=== PATIENT | male | born 1965 | race Caucasian/White ===

== ENCOUNTER 2019-08-12 14:31 | Outpatient (CLI) | payer BC, SELFPAY ==
--- NOTE | ~2019-08-12 | XR_ITS ---
EXAMINATION: XR lumbar spine 2-3V EXAM DATE: 08/12/2019 14:53 INDICATION: Bilateral hip pain. TECHNIQUE: Lumber spine frontal, lateral, lateral L5-S1 projections for interpretation. There is no prior study for comparison. FINDINGS: The vertebral bodies are aligned in the AP dimension. Vertebral body and disc heights are well-maintained. Mild lumbar facet arthropathy. Sacrum, sacroiliac joints, sacral arcuate lines are intact. Paraspinal soft tissue is unremarkable. IMPRESSION: Mild lumbar facet arthropathy. Otherwise unremarkable exam. Reviewed, dictated and finalized at location A.
== END 2019-08-12 14:32 | disposition home or self-care (01) ==
PROVIDERS: PCP Family Medicine; Visit Provider Physician Assistant
DX: M54.5 Low back pain (principal); M25.552 Pain in left hip; M25.551 Pain in right hip
CPT/HCPCS: 72100

== ENCOUNTER → 2021-03-28 11:46 | Outpatient (CLI) | payer OTHER, SELFPAY ==
--- NOTE | ~2021-03-28 | XR_ITS ---
EXAMINATION: XR chest 2V DATE: 03/28/2021 11:57 INDICATION: Employee health examination of the chest TECHNIQUE: PA chest FINDINGS:No prior studies for comparison. There is no focal consolidation, pleural effusion, or pneumothorax. The pulmonary vasculature is with in normal limits. The cardiomediastinal silhouette is normal. IMPRESSION: 1. No acute cardiopulmonary disease. Reviewed, dictated and finalized at location B. [employer]
== END ==
PROVIDERS: PCP Family Medicine; Visit Provider Family Medicine
DX: Z02.1 Encounter for pre-employment examination (principal)
CPT/HCPCS: 71046

== ENCOUNTER 2021-12-14 11:09 | Outpatient (CLI) | payer OTHER, SELFPAY ==
[2021-12-14 20:08] LABS: Alanine Aminotransferase 29 U/L (6-50); Albumin Level 4.6 g/dL (3.5-5.1); Alkaline Phosphatase 51 U/L (38-126); Anion Gap 15 mmol/L (8-16); Aspartate Amino Transferase 23 U/L (17-59); Bilirubin,Total 0.6 mg/dL (0.2-1.3); Blood Urea Nitrogen 15 mg/dL (9-20); Calcium 8.9 mg/dL (8.4-10.2); Carbon Dioxide 21 mmol/L (22-30); Chloride 104 mmol/L (98-107); Estimated Glomerular Filt Rate > 60; Glucose 109 mg/dL (65-110); Potassium 3.9 mmol/L (3.4-5.0); Sodium 140 mmol/L (137-145)
[2021-12-14 20:52] LABS: HIV 1/2 Ab P24 Ag Result Negative (Negative)
[2021-12-15 09:03] LABS: Rapid Plasma Reagin Non-Reactive (NonReactive)
== END 2021-12-14 11:10 | disposition home or self-care (01) ==
LOC: ANHGOSHLAB 11:11
PROVIDERS: PCP Family Medicine; Visit Provider Family Medicine
DX: Z02.1 Encounter for pre-employment examination (principal); Z11.4 Encounter for screening for human immunodeficiency virus [HIV]
CPT/HCPCS: 36415; 80053; 86592; 86703; G0432

== ENCOUNTER → 2021-12-14 11:26 | Outpatient (CLI) | payer SELFPAY ==
--- NOTE | ~2021-12-14 | XR_ITS ---
EXAMINATION: XR chest 2V Exam Date/Time: 12/14/2021 11:25 CDT HISTORY: Z02.1 - Encounter for pre-employment examination Comparison: 03/28/2021. RESULT: Lines, tubes, and devices: None. Lungs and pleura: Clear. Cardiomediastinal silhouette: Stable. Other: No acute osseous or upper abdominal finding. IMPRESSION: No acute cardiopulmonary process. Reviewed, dictated and finalized at location K.
== END ==
PROVIDERS: PCP Family Medicine; Visit Provider Family Medicine
DX: Z02.1 Encounter for pre-employment examination (principal)
CPT/HCPCS: 71046